=== PATIENT | female | born 1990 | race Two or more races ===

== ENCOUNTER 2017-11-13 08:37 | Emergency (ER) | payer MEDICAID ==
[~2017-11-13] VITALS: Ht 152.4 cm; Wt 96.2 kg
[2017-11-13 11:07] VITALS: BP 110/82
[2017-11-13] MEDS ORDERED: HYDROcodone-ACET 5/325MG TAB PO ONE (11:45)
[2017-11-13] MEDS ORDERED: DEXAMETHASONE SOD PHOS 10MG/1ML VIAL INJ IM ONE (12:45)
[2017-11-13] MEDS ORDERED: cefTRIAXone SOD 1,000 MG VL IM ONE (12:45)
== END 2017-11-13 13:16 | disposition home or self-care (01) ==
LOC: ER 08:37
DX: J03.90 Acute tonsillitis, unspecified (principal); J45.909 Unspecified asthma, uncomplicated
CPT/HCPCS: 70360; 96372; 99284; J0696; J1100

== ENCOUNTER 2017-11-16 07:54 | Emergency (ER) | payer MEDICAID ==
[~2017-11-16] VITALS: Ht 152.4 cm; Wt 90.7 kg
[2017-11-16 08:06] VITALS: BP 112/78
[2017-11-16] MEDS ORDERED: SODIUM CHLORIDE 0.9% 1,000 ML IV ONE (08:23)
[2017-11-16] MEDS ORDERED: ONDANSETRON ODT 4 MG TAB PO ONE (08:30)
[2017-11-16] MEDS ORDERED: methylPREDNISolone SOD SUCC 125 MG/2 ML VL IV ONE (08:30)
[2017-11-16] MEDS ORDERED: MORPHINE SULFATE 10 MG/ML INJ 1ML SDV IV ONE (08:30)
[2017-11-16] MEDS ORDERED: DEXAMETHASONE INJECTION 10 MG in D5W 5% 50 ML IV ONE (08:45)
[2017-11-16 09:43] LABS: Basophils # (auto) 0.1 uL; Basophils % (auto) 0.5 % (0.0-2.0); Eosinophils # (auto) 0.1 uL; Eosinophils % (auto) 1.5 % (0.0-7.0); Hematocrit 38.8 % (36.0-46.0); Lymphocytes # (auto) 3.1 uL; Lymphocytes % (auto) 31.5 % (10.0-50.0); Mean Corpuscular Hgb Conc. 33.5 g/dL (32.0-36.0); Mean Corpuscular Volume 80.6 fL (80.0-100.0); Monocytes # (auto) 0.7 uL; Monocytes % (auto) 6.6 % (0.0-12.0); Neutrophils # (auto) 5.9 uL; Neutrophils % (auto) 59.9 % (37.0-80.0); Nucleated Red Blood Cells % 0.1 %; Platelet Count (auto) 304 10^3/uL (140-450); Red Blood Cells 4.82 10^6/uL (4.0-5.20); Red Cell Distribution Width 13.8 % (11.8-14.3); White Blood Cell 9.9 10^3/uL (4.4-10.8)
[2017-11-16 10:03] LABS: Albumin 2.9 g/dL (3.4-5.0); BUN/Creatinine Ratio 15.4; Bilirubin, Total 0.3 mg/dL (0.2-1.0); Calcium 7.2 mg/dL (8.5-10.1); Potassium 3.3 mmol/L (3.5-5.1); Total Protein 6.1 g/dL (6.4-8.2)
[2017-11-16] MEDS ORDERED: cefTRIAXone SOD 1,000 MG VL ONE (10:04)
[2017-11-16] MEDS ORDERED: cefTRIAXone 1GM/10ml IVPUSH 10 ML IV ONE (10:15)
[2017-11-16] MEDS ORDERED: InsuLIN REG 1unit/0.01ml Soln (100units/ml) SC ONE (10:30)
== END 2017-11-16 11:25 | disposition home or self-care (01) ==
LOC: ER 07:54
DX: K11.20 Sialoadenitis, unspecified (principal); J45.909 Unspecified asthma, uncomplicated; Z88.8 Allergy status to other drugs, medicaments and biological substances
CPT/HCPCS: 36415; 70490; 80053; 83036; 85025; 87400; 96365; 96372; 96375; 99285; J1100; J2270; J7030; Q0162; 96361; J0696; J7060